=== PATIENT | male | born 1975 ===

== ENCOUNTER 2017-03-09 15:21 | Observation (INO) | payer SELFPAY ==
[2017-03-09 15:53] VITALS: O2SAT 95
[2017-03-09 16:13] LABS: BASO % 0.6 % (0.0-2.0); EOS # 0.1 K/uL (0.0-0.7); EOS % 1.6 % (0.0-4.0); HEMOGLOBIN 13.9 g/dL (12.0-18.0); LYMPH # 2.7 K/uL (1.0-4.3); LYMPH % 46.1 % (20.0-40.0); MEAN CELL VOLUME 93.2 fL (80.0-94.0); MEAN CORPUSCULAR HEMOGLOBIN 32.4 pg (27.0-31.0); MEAN CORPUSCULAR HGB CONC 34.7 g/dL (33.0-37.0); MEAN PLATELET VOLUME 10.3 fL (7.2-11.7); MONO # 0.3 K/uL (0.0-0.8); MONO % 5.8 % (0.0-10.0); NEUT # 2.7 K/uL (1.8-7.0); NEUT % 45.9 % (50.0-75.0); NRBC % 0.1 % (0.0-2.0); RBC 4.29 Mil/uL (4.40-5.90)
--- NOTE | 2017-03-09 16:17 | C.PDOC ---
History Of Present Illness A 41 y/o M with a Hx of schizophrenia, was found walking on the street threatening people with a plastic toy gun today. Patient was taken into custody by police and transferred to the ED for psychiatric evaluation. Patient admits to drinking ETOH today and drinking ETOH daily. Patient is currently taking no psych meds. Last evaluation here was in September. Patient is a poor historian and appears to be responding to some internal stimuli. Denies SI, HI, hallucination, or any physical complaints. Time Seen by Provider: 03/09/17 15:32 Chief Complaint (Nursing): Psychiatric Evaluation History Per: Patient History/Exam Limitations: no limitations Onset/Duration Of Symptoms: Hrs Current Symptoms Are (Timing): Still Present Suicide/Self Injury Attempted (Context): None Modifying Factor(s): Alcohol Severity: Mild Associated Symptoms: denies: Suicidal Thoughts, Suicidal Plan Involuntary Hold By: None Recent travel outside of the [place]: No Additional History Per: Patient Past Medical History Reviewed: Historical Data, Nursing Documentation, Vital Signs Vital Signs: Last Vital Signs Temp 98.5 F 03/09/17 18:59 Pulse 84 03/09/17 18:59 Resp 18 03/09/17 18:59 BP 118/71 03/09/17 18:59 Pulse Ox 95 03/09/17 18:59 - Medical History PMH: Schizophrenia (as per previous record) Denies: Diabetes, Hepatitis, HIV, HTN, Chronic Kidney Disease, Seizures, Sexually Transmitted Disease - [facility] Procedures INDIVID PSYCHOTHERAP NEC (07/08/14) OTHER GROUP THERAPY (08/09/14) PSYCHIA INTERV/EVAL NEC (08/02/14) Family History: States: Unknown Family Hx - Social History Hx Tobacco Use: No Hx Alcohol Use: Yes Hx Substance Use: No Review Of Systems Except As Marked, All Systems Reviewed And Found Negative. Constitutional: Positive for: Other (ETOH intoxicated) Psych: Negative for: Psychosis (Hallucination), Suicidal ideation, Other ( Homicidal ideation) Physical Exam - Physical Exam Appears: Non-toxic, No Acute Distress, Other (Calm, non-threathing. (+) AOB) Skin: Warm, Dry Head: Atraumatic, Normacephalic Eye(s): bilateral: Normal Inspection, PERRL, EOMI Cardiovascular: Rhythm Regular Respiratory: Normal Breath Sounds, No Accessory Muscle Use, No Rales, No Rhonchi , No Wheezing Gastrointestinal/Abdominal: Soft, No Tenderness Neurological/Psych: Oriented x3, Normal Speech, Other (No focal deficit) ED Course And Treatment - Laboratory Results Result Diagrams: 03/09/17 16:04 03/09/17 16:04 Lab Interpretation: No Acute Changes Interpretation Of Abnormal: ETOH 267 Mild elevation of LFTs O2 Sat by Pulse Oximetry: 95 (RA) Pulse Ox Interpretation: Normal Reevaluation Time: 20:39 Reassessment Condition: Improved (Patient evaluated by crisis. He is medically and psychiatrically cleared for discharge.) Medical Decision Making Medical Decision Making: Impression: A 41 y/o M with a Hx of schizophrenia, here for a psych evaluation after being found walking on street threatening people with a had a plastic toy gun today. Pt admits to drinking today. Plans: * Blood work up * 1:1 Obs * UA * Reassess Disposition Counseled Patient/Family Regarding: Studies Performed, Diagnosis, Need For Followup - Disposition Disposition: HOME/ ROUTINE Disposition Time: 20:39 Condition: IMPROVED - Clinical Impression Clinical Impression: Alcohol abuse - Scribe Statement The provider has reviewed the documentation as recorded by the Scribe Mary Jane leonard All medical record entries made by the Scribe were at my direction and personally dictated by me. I have reviewed the chart and agree that the record accurately reflects my personal performance of the history, physical exam, medical decision making, and the department course for this patient. I have also personally directed, reviewed, and agree with the discharge instructions and disposition.
[2017-03-09 16:28] LABS: URINE BILIRUBIN NEGATIVE (NEGATIVE); URINE BLOOD NEGATIVE (NEGATIVE); URINE CLARITY Clear (Clear); URINE COLOR Colorless (YELLOW); URINE GLUCOSE (UA) NORMAL (Normal); URINE LEUKOCYTE ESTERASE NEG Leu/uL (Negative); URINE NITRATE NEGATIVE (NEGATIVE); URINE PROTEIN NEGATIVE (NEGATIVE); URINE UROBILINOGEN NORMAL mg/dL (0.2-1.0)
[2017-03-09 16:48] LABS: ALBUMIN 3.9 g/dL (3.5-5.0)
[2017-03-09 16:51] LABS: ALB/GLOB RATIO 1.1 (1.0-2.1); ALT/SGPT 108 U/L (21-72); AST/SGOT 139 U/L (17-59); BLOOD UREA NITROGEN 6 mg/dL (9-20); CALCIUM 8.2 mg/dl (8.6-10.4); GFR AFRICAN-AMERICAN > 60; GFR NON-AFRICAN AMERICAN > 60
[2017-03-09 16:58] LABS: BENZODIAZEPINES, UR NEGATIVE (NEGATIVE)
[2017-03-09 17:00] LABS: BARBITURATES, UR NEGATIVE (NEGATIVE)
[2017-03-09 17:02] LABS: OPIATES, UR NEGATIVE (NEGATIVE)
[2017-03-09 17:03] LABS: PHENCYCLIDINE, UR NEGATIVE (NEGATIVE)
[2017-03-09 19:00] VITALS: RESP 18
[2017-03-09 20:39] VITALS: BP 128/77; PULSE 93; TEMP 98.2
== END 2017-03-09 20:40 | disposition home or self-care (01) ==
LOC: C.ER 15:21 → C.9OBSV 18:40
PROVIDERS: ADMIT Emergency Medicine; ATTEND Emergency Medicine
DX: F10.120 Alcohol abuse with intoxication, uncomplicated (principal); Y90.8 Blood alcohol level of 240 mg/100 ml or more
CPT/HCPCS: 80053; 81001; 85025; G0378; G0480